=== PATIENT | male | born 1950 | race Caucasian/White ===

== ENCOUNTER 2016-09-05 11:14 | Emergency (ER) | payer BC ==
[~2016-09-05] VITALS: Ht 182.9 cm; Wt 95.0 kg
[2016-09-05 11:25] LABS: HEMATOCRIT 42.4 % (39.0-50.0); HEMOGLOBIN 14.7 g/dl (14.0-18.0); IMMATURE GRANULOCYTES 0.3 % (0.0-1.0); MEAN CELL VOLUME 88.5 fL CALC (80.0-100.0); MEAN CORPUSCULAR HGB 30.7 pG CALC (26.0-32.0); MEAN CORPUSCULAR HGB CONC 34.7 g/L CALC (32.0-36.0); NEUT# 4.57 thou/uL (1.82-7.42); RED BLOOD COUNT 4.79 mill/uL (4.70-6.10); RED CELL DISTRI WIDTH 12.7 % (11.5-15.5)
[2016-09-05] MEDS ORDERED: KEPPRA1000 MG PO (11:33)
[2016-09-05] MEDS ORDERED: DILTIAZEM30 MG PO (11:34)
[2016-09-05 11:40] LABS: PROTHROMBIN TIME 10.3 SECONDS (9.0-12.5)
[2016-09-05 11:42] LABS: ALBUMIN 4.6 g/dL (3.2-5.0); ALKALINE PHOSPHATASE 73 u/l (38-126); ANION GAP 16 (6-22 (CALC)); BILIRUBIN, TOTAL 0.8 mg/dL (0.0-1.4); BUN 22 mg/dL (8-23); BUN/CREATININE RATIO 21 (12-20 (CALC)); CALCIUM 9.7 mg/dL (8.4-10.2); CARBON DIOXIDE 21 mmol/l (22-30); CHLORIDE 111 mmol/l (95-108); CREATININE 1.1 mg/dL (0.7-1.3); GFR > 60 ML/MIN (>=60 (CALC)); GFR FOR AFR.AMER. > 60 ML/MIN (>=60 (CALC)); GLUCOSE 104 mg/dL (82-115); POTASSIUM 4.2 mmol/l (3.5-5.1); SGOT/AST 30 u/l (19-48); SGPT/ALT 41 u/l (11-66); SODIUM 145 mmol/l (137-146); TOTAL PROTEIN 7.2 g/dL (6.3-8.2)
[2016-09-05 11:43] LABS: ETHYL ALCOHOL 0 mg/dl (0-30)
[2016-09-05 11:54] LABS: MYOGLOBIN 35 ng/mL (0 - 121)
[2016-09-05] MEDS ORDERED: DILTIAZEM120 MG PO (11:55)
[2016-09-05 14:14] VITALS: BP 175/91
== END 2016-09-05 14:14 | disposition short-term general hospital (02) | DRG 948 ==
LOC: ED 11:14
PROVIDERS: Emergency Medicine
DX: R41.82 Altered mental status, unspecified (principal); G93.89 Other specified disorders of brain; Z86.011 Personal history of benign neoplasm of the brain

== ENCOUNTER 2017-09-25 17:00 | Emergency (ER) | payer MEDICARE ==
[~2017-09-25] VITALS: Ht 182.9 cm; Wt 150.0 kg
[~2017-09-25 17:00] MED LIST: DILTIAZEM120 MG PO; DILTIAZEM30 MG PO; KEPPRA1000 MG PO
[2017-09-25] MEDS ORDERED: VIMPAT200 MG PO (18:04)
[2017-09-25] MEDS ORDERED: ASPIRINCHW 81MG PO (18:05)
[2017-09-25 18:06] LABS: HEMOGLOBIN 15.6 g/dl (14.0-18.0); IMMATURE GRANULOCYTES 0.5 % (0.0-1.0); MEAN CELL VOLUME 86.4 fL CALC (80.0-100.0); MEAN CORPUSCULAR HGB 30.6 pG CALC (26.0-32.0); MEAN CORPUSCULAR HGB CONC 35.5 g/L CALC (32.0-36.0); NEUT# 6.95 thou/uL (1.82-7.42); RED BLOOD COUNT 5.09 mill/uL (4.70-6.10); RED CELL DISTRI WIDTH 12.8 % (11.5-15.5)
[2017-09-25 18:30] LABS: ALBUMIN 4.7 g/dL (3.2-5.0); ALKALINE PHOSPHATASE 84 u/l (38-126); AMYLASE 93 u/l (30-110); ANION GAP 14 (6-22 (CALC)); BILIRUBIN, TOTAL 0.7 mg/dL (0.0-1.4); BUN 29 mg/dL (8-23); BUN/CREATININE RATIO 30 (12-20 (CALC)); CARBON DIOXIDE 23 mmol/l (22-30); CHLORIDE 108 mmol/l (95-108); GFR > 60 ML/MIN (>=60 (CALC)); GFR FOR AFR.AMER. > 60 ML/MIN (>=60 (CALC)); LIPASE 63 u/l (23-300); POTASSIUM 3.8 mmol/l (3.5-5.1); SGOT/AST 36 u/l (19-48); SGPT/ALT 40 u/l (11-66); SODIUM 141 mmol/l (137-146); TOTAL PROTEIN 8.2 g/dL (6.3-8.2)
[2017-09-25 18:42] LABS: MYOGLOBIN 37 ng/mL (0 - 121)
[2017-09-25 18:48] LABS: URINE BILIRUBIN - DIPSTICK NEGATIVE (NEGATIVE); URINE BLOOD DIPSTICK NEGATIVE (NEGATIVE); URINE CLARITY CLEAR; URINE COLOR YELLOW; URINE GLUCOSE - DIPSTICK NEGATIVE (NEGATIVE); URINE KETONE 40 mg/dL (NEGATIVE); URINE LEUK ESTERASE NEGATIVE (NEGATIVE); URINE NITRITE - DIPSTICK NEGATIVE (Negative); URINE PH 8.5 (4.5-8.0); URINE PROTEIN - DIPSTICK TRACE mg/dL (NEG-TRACE); URINE SPECIFIC GRAVITY 1.015; URINE UROBILINOGEN - DIPSTICK 0.2 E.U./dL (0.2)
[2017-09-25] MEDS ORDERED: ZOFRAN4 MG/TAB PO (19:53)
[2017-09-25 20:34] VITALS: BP 132/70
== END 2017-09-25 20:15 | disposition home or self-care (01) ==
LOC: ED 17:00
PROVIDERS: Emergency Medicine
DX: R10.13 Epigastric pain (principal); R11.2 Nausea with vomiting, unspecified; I10 Essential (primary) hypertension; I48.91 Unspecified atrial fibrillation; G40.909 Epilepsy, unspecified, not intractable, without status epilepticus
CPT/HCPCS: Q9967; S0164

== ENCOUNTER 2017-09-30 18:35 | Emergency (ER) | payer MEDICARE ==
[~2017-09-30] VITALS: Ht 182.9 cm; Wt 109.1 kg
[~2017-09-30 18:35] MED LIST changes: +ASPIRINCHW 81MG PO; +VIMPAT200 MG PO; +ZOFRAN4 MG/TAB PO
[2017-09-30 19:38] LABS: HEMATOCRIT 43.4 % (39.0-50.0); HEMOGLOBIN 15.1 g/dl (14.0-18.0); IMMATURE GRANULOCYTES 0.3 % (0.0-5.0); MEAN CELL VOLUME 88.8 fL CALC (80.0-100.0); MEAN CORPUSCULAR HGB 30.9 pG CALC (26.0-32.0); MEAN CORPUSCULAR HGB CONC 34.8 g/L CALC (32.0-36.0); NEUT# 3.15 thou/uL (1.82-7.42); RED BLOOD COUNT 4.89 mill/uL (4.70-6.10); RED CELL DISTRI WIDTH 13.2 % (11.5-15.5)
[2017-09-30 19:50] LABS: ALBUMIN 4.2 g/dL (3.2-5.0); ALKALINE PHOSPHATASE 84 u/l (38-126); ANION GAP 14 (6-22 (CALC)); BILIRUBIN, TOTAL 0.5 mg/dL (0.0-1.4); BUN 21 mg/dL (8-23); BUN/CREATININE RATIO 21 (12-20 (CALC)); CARBON DIOXIDE 24 mmol/l (22-30); CHLORIDE 105 mmol/l (95-108); GFR > 60 ML/MIN (>=60 (CALC)); GFR FOR AFR.AMER. > 60 ML/MIN (>=60 (CALC)); MAGNESIUM 2.2 mg/dL (1.6-2.3); POTASSIUM 4.2 mmol/l (3.5-5.1); SGOT/AST 29 u/l (19-48); SGPT/ALT 33 u/l (11-66); SODIUM 139 mmol/l (137-146); TOTAL PROTEIN 6.9 g/dL (6.3-8.2)
[2017-09-30 20:51] LABS: URINE BILIRUBIN - DIPSTICK NEGATIVE (NEGATIVE); URINE BLOOD DIPSTICK NEGATIVE (NEGATIVE); URINE COLOR YELLOW; URINE GLUCOSE - DIPSTICK NEGATIVE (NEGATIVE); URINE KETONE NEGATIVE (NEGATIVE); URINE LEUK ESTERASE NEGATIVE (NEGATIVE); URINE NITRITE - DIPSTICK NEGATIVE (Negative); URINE PROTEIN - DIPSTICK NEGATIVE (NEG-TRACE); URINE UROBILINOGEN - DIPSTICK 0.2 E.U./dL (0.2)
[2017-09-30 20:52] LABS: URINE CLARITY CLEAR
[2017-09-30] MEDS ORDERED: ATIVAN1 MG PO (21:02)
[2017-09-30 21:09] VITALS: BP 146/84
== END 2017-09-30 21:19 | disposition home or self-care (01) ==
LOC: ED 18:35
DX: G40.909 Epilepsy, unspecified, not intractable, without status epilepticus (principal); I10 Essential (primary) hypertension; I48.91 Unspecified atrial fibrillation; Z79.899 Other long term (current) drug therapy

== ENCOUNTER 2018-11-09 08:35 | Emergency (ER) | payer MEDICARE ==
[~2018-11-09] VITALS: Ht 182.9 cm; Wt 106.8 kg
[~2018-11-09 08:35] MED LIST changes: +ATIVAN1 MG PO
[2018-11-09 09:31] LABS: HEMATOCRIT 41.3 % (39.0-50.0); HEMOGLOBIN 13.9 g/dl (14.0-18.0); IMMATURE GRANULOCYTES 0.6 % (0.0-5.0); MEAN CELL VOLUME 89.4 fL CALC (80.0-100.0); MEAN CORPUSCULAR HGB 30.1 pG CALC (26.0-32.0); MEAN CORPUSCULAR HGB CONC 33.7 g/L CALC (32.0-36.0); NEUT# 1.9 thou/uL (1.82-7.42); RED BLOOD COUNT 4.62 mill/uL (4.70-6.10); RED CELL DISTRI WIDTH 13.2 % (11.5-15.5)
[2018-11-09 09:57] LABS: ALBUMIN 4.1 g/dL (3.2-5.0); ALKALINE PHOSPHATASE 65 u/l (38-126); ANION GAP 11 (6-22 (CALC)); BILIRUBIN, TOTAL 0.5 mg/dL (0.0-1.4); BUN 16 mg/dL (8-23); BUN/CREATININE RATIO 16 (12-20 (CALC)); CARBON DIOXIDE 26 mmol/l (22-30); CHLORIDE 109 mmol/l (95-108); GFR > 60 ML/MIN (>=60 (CALC)); GFR FOR AFR.AMER. > 60 ML/MIN (>=60 (CALC)); POTASSIUM 4.1 mmol/l (3.5-5.1); SGOT/AST 27 u/l (19-48); SODIUM 141 mmol/l (137-146); TOTAL PROTEIN 6.6 g/dL (6.3-8.2)
[2018-11-09 10:21] VITALS: BP 153/86
== END 2018-11-09 10:26 | disposition home or self-care (01) ==
LOC: ED 08:35
PROVIDERS: Family Medicine
DX: R29.90 Unspecified symptoms and signs involving the nervous system (principal); G40.909 Epilepsy, unspecified, not intractable, without status epilepticus; I10 Essential (primary) hypertension; I48.91 Unspecified atrial fibrillation

== ENCOUNTER 2022-08-24 01:25 | Emergency (ER) | payer MEDICARE ==
[~2022-08-24] VITALS: Ht 182.9 cm; Wt 92.2 kg
[2022-08-24 01:36] VITALS: BP 153/88
[2022-08-24 02:01] VITALS: BP 143/86
[2022-08-24] MEDS ORDERED: DIPHENHYDRAM50 M2 PO (02:02)
[2022-08-24 02:16] VITALS: BP 148/79
[2022-08-24 02:31] VITALS: BP 133/70
[2022-08-24 02:59] VITALS: BP 126/68
== END 2022-08-24 03:08 | disposition home or self-care (01) ==
LOC: ED 01:25
DX: S30.860A Insect bite (nonvenomous) of lower back and pelvis, initial encounter (principal); S20.469A Insect bite (nonvenomous) of unspecified back wall of thorax, initial encounter; I10 Essential (primary) hypertension; I48.91 Unspecified atrial fibrillation; G40.909 Epilepsy, unspecified, not intractable, without status epilepticus; F17.200 Nicotine dependence, unspecified, uncomplicated; W57.XXXA Bitten or stung by nonvenomous insect and other nonvenomous arthropods, initial encounter